=== PATIENT | female | born 1940 | race American Indian/Alaskan Native ===

== ENCOUNTER 2018-01-06 14:46 | Emergency (ER) | payer MEDICARE ==
[2018-01-06 15:16] VITALS: BP 141/62
[2018-01-06] MEDS ORDERED: NACL 0.9% 1000 ML 1,000 ML IV ONE (15:17)
== END 2018-01-06 15:12 | disposition left against medical advice (07) ==
LOC: ED 14:46
DX: T80.89XA Other complications following infusion, transfusion and therapeutic injection, initial encounter (principal); R53.1 Weakness; Z95.0 Presence of cardiac pacemaker; Z90.49 Acquired absence of other specified parts of digestive tract; Z88.0 Allergy status to penicillin; Z53.21 Procedure and treatment not carried out due to patient leaving prior to being seen by health care provider

== ENCOUNTER 2018-04-20 20:47 | Inpatient (IN) | payer MEDICARE ==
[2018-04-20] MEDS ORDERED: CARDIZEM IV ONE (22:48)
--- NOTE | 2018-04-20 22:55 | Emergency Department Report ---
HPI - General Time Seen by Provider: 04/20/18 22:02 - HPI HPI: Room 18 The patient is an 78-year-old female presenting with a chief complaint of altered mental status. The patient is a resident at a alf and family states the patient last known well time was 04/18/2018. The daughter states she did not check on the patient yesterday but today at 11:30 shows that the patient was not behaving like herself that she was not speaking and appears over her eyes rolled in the back of her head. Patient opens eyes and makes eye contact but will not answer questions to provide history. Location: Mental status Duration: [See above] Quality: Altered Severity: Moderate Modifying factors: [see above] Context: [see above] Mode of transportation: [not driving] ED Past Medical Hx - Past Medical History Hx Hypertension: Yes Hx Heart Attack/AMI: Yes Hx Congestive Heart Failure: Yes Hx Diabetes: Yes (diet) Hx of Cancer: Yes (multiple myeloma) Additional medical history: Heart problems; multiple myeloma - Surgical History Hx Coronary Stent: Yes Hx Appendectomy: Yes Additional Surgical History: Pacemaker, Hysterectomy, Bladder surgery; jaw surgery - Family History Family history: no significant - Social History Smoking Status: Former Smoker (none 20 years) Substance Use Type: None - Medications Home Medications: Home Medications Medication Instructions Recorded Confirmed Last Taken Type Aspirin [Aspirin BABY CHEW TAB] 81 mg PO QDAY 08/18/14 01/06/18 Unknown History DULoxetine [Cymbalta] 60 mg PO DAILY 08/18/14 01/06/18 Unknown History Gabapentin [Neurontin] 300 mg PO BID 08/18/14 01/06/18 Unknown History Topiramate [Topamax TAB] 25 mg PO HS 08/18/14 01/06/18 Unknown History amLODIPine [Norvasc] 5 mg PO DAILY 08/18/14 01/06/18 Unknown History ALPRAZolam [Xanax TAB] 0.25 mg PO DAILY PRN 01/06/18 01/06/18 Unknown History Acidophilus Lactobacillus 1 cap PO BID 01/06/18 01/06/18 Unknown History Atorvastatin Calcium 80 mg PO HS 01/06/18 01/06/18 Unknown History Carvedilol [Coreg] 3.125 mg PO DAILY 01/06/18 01/06/18 Unknown History Dextran 70/Hypromellose 1 drop OU BID 01/06/18 01/06/18 Unknown History [Artificial Tears] Docusate Sodium [Colace CAP] 100 mg PO DAILY 01/06/18 01/06/18 Unknown History Norvasc 5 mg PO DAILY 01/06/18 01/06/18 Unknown History Sennosides [Senna] 2 tab PO BID 01/06/18 01/06/18 Unknown History Ventolin Hfa 2 puff INHALATION Q4H PRN 01/06/18 01/06/18 Unknown History Xanax 0.25 mg PO HS 01/06/18 01/06/18 Unknown History HYDROcodone/APAP 5-325 [[place] 1 each PO Q4H PRN #10 tablet 01/18/18 Unknown Rx 5-325 mg TAB] ED Review of Systems ROS: Stated complaint: RESPIRATORY DIFFICULTY Other details as noted in HPI Comment: Unobtainable due to pts medical conditions Physical Exam - Physical Exam Physical Exam: GENERAL: The patient is well-developed well-nourished female lying on stretcher not appearing to be in acute distress. [] HEENT: Normocephalic. Atraumatic. Extraocular motions are intact. Patient has moist mucous membranes. NECK: Supple. Trachea midline CHEST/LUNGS: Clear to auscultation. There is no respiratory distress noted. HEART/CARDIOVASCULAR: Irregular but rapid. There is tachycardia. There is no gallop rub or murmur. ABDOMEN: Abdomen is soft, with tenderness to palpation in the right upper quadrant and left upper quadrant. Patient has normal bowel sounds. There is no abdominal distention. SKIN: There is no rash. There is no diaphoresis. NEURO: The patient is awake but does not answer questions. Patient will not follow commands for neurologic exam. MUSCULOSKELETAL: There is no evidence of acute injury. - Central Line Placement Right Femoral Consent Obtained: verbal consent Time Out Performed: No Patient Placed on Monitor/Pulse Ox: Yes MD Prep: mask, gown, gloves Central Line Prep: Chlorhexidine scrub Local Anesthesia Used: Lidocaine 1% Amount of Anesthesia Used (mls): 5 Ultrasound Used for Placement: No Central Line Lumen Inserted: triple Bloods Obtained for Lab: Yes Central Line Position: good blood return, all ports aspirated, flus, other ( line secured with adhesive) Dressing Applied: Tegaderm Patient Tolerated Procedure: no complications Complications: none ED Medical Decision Making - Lab Data Result diagrams: 04/21/18 00:05 04/21/18 00:05 Laboratory Tests 04/21/18 04/21/18 04/21/18 00:05 00:05 00:05 WBC 2.9 L RBC 2.51 L Hgb 7.6 L Hct 22.7 L MCV 91 MCH 30 MCHC 33 RDW 17.8 H Plt Count 47 L PT 19.3 H INR 1.57 H APTT 36.4 D-Dimer 3469.10 H Sodium 146 H Potassium 3.4 L Chloride 107.2 H Carbon Dioxide 18 L Anion Gap 24 BUN 33 H Creatinine 1.8 H Estimated GFR 33 BUN/Creatinine Ratio 18 Glucose 155 H Calcium 7.5 L Total Bilirubin 1.90 H AST 29 ALT 17 Alkaline Phosphatase 73 Total Creatine Kinase CK-MB (CK-2) CK-MB (CK-2) Rel Index Troponin T NT-Pro-B Natriuret Pep Total Protein 4.6 L Albumin 2.3 L Albumin/Globulin Ratio 1.0 Triglycerides Cholesterol LDL Cholesterol Direct HDL Cholesterol Cholesterol/HDL Ratio Lipase 04/21/18 00:05 WBC RBC Hgb Hct MCV MCH MCHC RDW Plt Count PT INR APTT D-Dimer Sodium Potassium Chloride Carbon Dioxide Anion Gap BUN Creatinine Estimated GFR BUN/Creatinine Ratio Glucose Calcium Total Bilirubin AST ALT Alkaline Phosphatase Total Creatine Kinase 301 H CK-MB (CK-2) 1.9 CK-MB (CK-2) Rel Index 0.6 Troponin T 0.180 H* NT-Pro-B Natriuret Pep 9064 H Total Protein Albumin Albumin/Globulin Ratio Triglycerides 181 H Cholesterol 93 LDL Cholesterol Direct 28 L HDL Cholesterol 35 L Cholesterol/HDL Ratio 2.65 Lipase 7 L - EKG Data -: EKG Interpreted by Me Rate: tachycardia - EKG Data When compared to previous EKG there are: previous EKG unavailable Interpretation: other (on monitor patient's rate appears irregular consistent with A. fib with RVR) - Radiology Data Radiology results: pending (VQ scan pending (awaiting tech)), report reviewed ( CT abdomen and pelvis, CT head), image reviewed (chest x-ray, CT abdomen and pelvis, CT head) interpreted by me: Chest x-ray- patient is slightly rotated. Bibasilar increased densities versus breast shadows. No pneumothorax [facility] [address] [place] [address] Cat Scan Report Signed Patient: LASHA VIEIRA MR#: [id number] : 1940 Acct:[id number] Age/Sex: 78 / F ADM Date: 04/20/18 Loc: ED Attending Dr: Ordering Physician: VINAY LOPEZ MD Date of Service: 04/21/18 Procedure(s): CT abdomen pelvis wo con Accession Number(s): [id number] cc: VINAY LOPEZ MD FINAL REPORT PROCEDURE: CT ABDOMEN PELVIS WO CON TECHNIQUE: Computerized axial tomography of the abdomen and pelvis was performed without intravenous contrast. This study is performed without intravascular contrast material and its sensitivity for abdominal and pelvic pathology, including neoplasms, inflammation, abscess, free fluid, thrombosis, arterial dissection and infarction, is reduced compared with a contrast enhanced study. HISTORY: RUQ, LUQ and epigastric tenderness COMPARISON: No prior studies are available for comparison. FINDINGS: Visualized lower thorax: There is atelectasis at the lung bases. There is a right lower lobe infiltrate. There are bilateral pleural effusions.. Liver: Normal size and attenuation. Spleen: Normal size and attenuation. Gallbladder and biliary system: There is cholelithiasis. There is no specific evidence of cholecystitis or biliary ductal dilatation.. Pancreas: Normal. Adrenals: Normal. Kidneys: There are no kidney stones or ureteral stones. There is no hydronephrosis. There is a 2 centimeter hypodense area in the left kidney which could be a cyst.. GI tract: There is mucosal thickening of the colon indicating colitis. This is nonspecific and could be infectious or inflammatory. There is no specific evidence of ischemic colitis. There is no obstruction or perforation. The stomach and small bowel are unremarkable. The appendix is not identified.. Lymph nodes and mesentery: Normal. Vasculature: There is calcified plaque in the abdominal aorta. There is no aneurysm.. Bladder: Normal. Reproductive organs: There has been hysterectomy. Peritoneum: There is no ascites or free air. There is no abscess or adenopathy.. Musculoskeletal structures: There are compression deformities of T12 and L1 which could be acute. MRI may be helpful. Other: There is generalized subcutaneous edema.. IMPRESSION: There is cholelithiasis. There is no specific evidence of cholecystitis or biliary ductal dilatation. There are no kidney stones or ureteral stones. There is no hydronephrosis. There is a 2 centimeter hypodense area in the left kidney which could be a cyst.. There is mucosal thickening of the colon indicating colitis. This is nonspecific and could be infectious or inflammatory. There is no specific evidence of ischemic colitis. There is no obstruction or perforation. There has been hysterectomy. There is no ascites or free air. There is no abscess or adenopathy.. There are compression deformities of T12 and L1 which could be acute. MRI may be helpful. There is atelectasis at the lung bases. There is a right lower lobe infiltrate. There are bilateral pleural effusions.. Transcribed By: CO Dictated By: MAIRA DAMON MD Electronically Authenticated By: MAIRA DAMON MD Signed Date/Time: 04/21/18155 DD/ 5 TD/TT: 04/21/18155 [facility] [address] [place] [address] Cat Scan Report Signed Patient: LASHA VIEIRA MR#: [id number] : 1940 Acct:[id number] Age/Sex: 78 / F ADM Date: 04/20/18 Loc: ED Attending Dr: Ordering Physician: VINAY LOPEZ MD Date of Service: 04/20/18 Procedure(s): CT head/brain wo con Accession Number(s): [id number] cc: VINAY LOPEZ MD FINAL REPORT PROCEDURE: CT HEAD/BRAIN WO CON TECHNIQUE: Computerized tomography of the head was performed without contrast material. HISTORY: altered mental status COMPARISON: No prior studies are available for comparison. FINDINGS: Skull and scalp: Normal. Paranasal sinuses: There is fluid in the sphenoid sinus.. Ventricles and subarachnoid spaces: There is mild central and cortical atrophy. There is no hydrocephalus or asymmetry.. Cerebrum: No evidence of hemorrhage, acute infarction or mass. There is mild chronic deep white matter ischemic gliosis. Cerebellum and brainstem: No evidence of hemorrhage, acute infarction or mass. Vasculature: Normal. Comments: None. IMPRESSION: The there are chronic involutional and ischemic changes. There is no hemorrhage or edema. There is sphenoid sinusitis. Transcribed By: CO Dictated By: MAIRA DAMON MD Electronically Authenticated By: MAIRA DAMON MD Signed Date/Time: 04/21/18158 DD/ 8 TD/TT: 04/21/18158 [facility] [address] [place] [address] XRay Report Signed Patient: LASHA VIEIRA MR#: [id number] : 1940 Acct:[id number] Age/Sex: 78 / F ADM Date: 04/20/18 Loc: ED Attending Dr: Ordering Physician: VINAY LOPEZ MD Date of Service: 04/21/18 Procedure(s): XR chest 1V ap Accession Number(s): [id number] cc: VINAY LOPEZ MD Fluoro Time In Minutes: FINAL REPORT PROCEDURE: XR CHEST 1V AP TECHNIQUE: Chest radiograph anteroposterior view. CPT 65200 HISTORY: tachycardia, elevated d-dimer COMPARISON: 01/18/2018 FINDINGS: Heart is enlarged. There are bilateral lower lobe infiltrates and small effusions. There is no pneumothorax. Bony and soft tissue structures are normal. IMPRESSION: Heart is enlarged. There are bilateral lower lobe infiltrates and small effusions. There is no pneumothorax. . Transcribed By: CO Dictated By: MAIRA DAMON MD Electronically Authenticated By: MAIRA DAMON MD Signed Date/Time: 04/21/18212 DD/ 2 TD/TT: 04/21/18212 - Differential Diagnosis sepsis, CVA, altered mental status, A. fib with RVR Critical Care Time: Yes Critical care time in (mins) excluding proc time.: 30 Critical care attestation.: If time is entered above; I have spent that time in minutes in the direct care of this critically ill patient, excluding procedure time. ED Disposition Clinical Impression: Altered mental status, Elevated troponin, Tachycardia, Pancytopenia, Renal insufficiency, Pneumonia Disposition: OP ADMIT IP TO THIS HOSP Is pt being admited?: Yes Does the pt Need Aspirin: No Condition: Serious Instructions: Bacterial Pneumonia (ED) Referrals: PRIMARY CARE, [Primary Care Provider] - 3-5 Days Time of Disposition: 02:16 (hospitalist paged (Dr Rose))
[2018-04-20] MEDS ORDERED: CARDIZEM 100 MG in D5W 80 ML IV SCH (23:45)
[2018-04-21 00:21] LABS: Hematocrit 22.7 % (30.3-42.9); Hemoglobin 7.6 gm/dl (10.1-14.3); Mean Corpuscular HGB Conc 33 % (30-34); Mean Corpuscular Hemoglobin 30 pg (28-32); Mean Corpuscular Volume 91 fl (79-97); Red Blood Count 2.51 M/mm3 (3.65-5.03); Red Cell Distribution Width 17.8 % (13.2-15.2)
[2018-04-21 00:29] LABS: Platelet Count 47 K/mm3 (140-440)
[2018-04-21 00:31] LABS: INR 1.57 (0.87-1.13)
[2018-04-21 00:32] LABS: Partial Thromboplastin Time 36.4 Sec. (24.2-36.6)
[2018-04-21 00:52] LABS: Creatine Kinase MB 1.9 ng/mL (0.0-4.0)
[2018-04-21 00:53] LABS: Albumin 2.3 g/dL (3.9-5); Calcium 7.5 mg/dL (8.4-10.2)
[2018-04-21] MEDS ORDERED: CARDIZEM IV ONE (01:21)
--- NOTE | 2018-04-21 01:57 | Cat Scan Report ---
FINAL REPORT PROCEDURE: CT ABDOMEN PELVIS WO CON TECHNIQUE: Computerized axial tomography of the abdomen and pelvis was performed without intravenous contrast. This study is performed without intravascular contrast material and its sensitivity for abdominal and pelvic pathology, including neoplasms, inflammation, abscess, free fluid, thrombosis, arterial dissection and infarction, is reduced compared with a contrast enhanced study. HISTORY: RUQ, LUQ and epigastric tenderness COMPARISON: No prior studies are available for comparison. FINDINGS: Visualized lower thorax: There is atelectasis at the lung bases. There is a right lower lobe infiltrate. There are bilateral pleural effusions.. Liver: Normal size and attenuation. Spleen: Normal size and attenuation. Gallbladder and biliary system: There is cholelithiasis. There is no specific evidence of cholecystitis or biliary ductal dilatation.. Pancreas: Normal. Adrenals: Normal. Kidneys: There are no kidney stones or ureteral stones. There is no hydronephrosis. There is a 2 centimeter hypodense area in the left kidney which could be a cyst.. GI tract: There is mucosal thickening of the colon indicating colitis. This is nonspecific and could be infectious or inflammatory. There is no specific evidence of ischemic colitis. There is no obstruction or perforation. The stomach and small bowel are unremarkable. The appendix is not identified.. Lymph nodes and mesentery: Normal. Vasculature: There is calcified plaque in the abdominal aorta. There is no aneurysm.. Bladder: Normal. Reproductive organs: There has been hysterectomy. Peritoneum: There is no ascites or free air. There is no abscess or adenopathy.. Musculoskeletal structures: There are compression deformities of T12 and L1 which could be acute. MRI may be helpful. Other: There is generalized subcutaneous edema.. IMPRESSION: There is cholelithiasis. There is no specific evidence of cholecystitis or biliary ductal dilatation. There are no kidney stones or ureteral stones. There is no hydronephrosis. There is a 2 centimeter hypodense area in the left kidney which could be a cyst.. There is mucosal thickening of the colon indicating colitis. This is nonspecific and could be infectious or inflammatory. There is no specific evidence of ischemic colitis. There is no obstruction or perforation. There has been hysterectomy. There is no ascites or free air. There is no abscess or adenopathy.. There are compression deformities of T12 and L1 which could be acute. MRI may be helpful. There is atelectasis at the lung bases. There is a right lower lobe infiltrate. There are bilateral pleural effusions..
--- NOTE | 2018-04-21 02:01 | Cat Scan Report ---
FINAL REPORT PROCEDURE: CT HEAD/BRAIN WO CON TECHNIQUE: Computerized tomography of the head was performed without contrast material. HISTORY: altered mental status COMPARISON: No prior studies are available for comparison. FINDINGS: Skull and scalp: Normal. Paranasal sinuses: There is fluid in the sphenoid sinus.. Ventricles and subarachnoid spaces: There is mild central and cortical atrophy. There is no hydrocephalus or asymmetry.. Cerebrum: No evidence of hemorrhage, acute infarction or mass. There is mild chronic deep white matter ischemic gliosis. Cerebellum and brainstem: No evidence of hemorrhage, acute infarction or mass. Vasculature: Normal. Comments: None. IMPRESSION: The there are chronic involutional and ischemic changes. There is no hemorrhage or edema. There is sphenoid sinusitis.
[2018-04-21 02:08] LABS: Chol/HDL Ratio 2.65 %
[2018-04-21] MEDS ORDERED: PLAVIX PO ONE (02:08)
[2018-04-21] MEDS ORDERED: LEVAQUIN 500MG/100ML 500 MG/100 ML BAG IV ONE ×2 (02:15→03:17)
--- NOTE | 2018-04-21 02:15 | XRay Report ---
FINAL REPORT PROCEDURE: XR CHEST 1V AP TECHNIQUE: Chest radiograph anteroposterior view. CPT 54939 HISTORY: tachycardia, elevated d-dimer COMPARISON: 01/18/2018 FINDINGS: Heart is enlarged. There are bilateral lower lobe infiltrates and small effusions. There is no pneumothorax. Bony and soft tissue structures are normal. IMPRESSION: Heart is enlarged. There are bilateral lower lobe infiltrates and small effusions. There is no pneumothorax. .
[2018-04-21] MEDS ORDERED: ZOFRAN IV PRN (03:01)
[2018-04-21] MEDS ORDERED: TYLENOL PO PRN (03:02)
[2018-04-21] MEDS: MORPHINE IV PRN (03:22)
--- NOTE | 2018-04-21 05:17 | History and Physical Report ---
CHIEF COMPLAINT: Change in mental status. HISTORY OF PRESENT ILLNESS: The patient is an 78-year-old female brought from the care home because of change in mental status. The patient's daughter states she went there and noticed that the mother was not talking the way she used to talk and was confused, but there was no history of fever. There was no history of chest pain, nausea or vomiting. Also, daughter states she noticed that her mother's eyes were rolled back and patient was brought over for evaluation in the Emergency Room. PAST MEDICAL HISTORY: Pertinent for hypertension, coronary artery disease, status post myocardial infarction, congestive heart failure, diabetes mellitus, multiple myeloma. PAST SURGICAL HISTORY: Pertinent for appendectomy, coronary artery stent placement, pacemaker placement, hysterectomy, bladder surgery and jaw surgery. FAMILY HISTORY: Family history is noncontributory. SOCIAL HISTORY: The patient stays at a care home, does not smoke currently, used to smoke about 20 years ago. Does not drink alcohol and does not use illicit drugs. MEDICATIONS: The patient is on the following medications: Aspirin 81 mg daily, Cymbalta 60 mg daily, gabapentin 300 mg twice daily, Topamax 25 mg at bedtime, Norvasc 5 mg by mouth daily, Xanax 0.25 mg by mouth daily as needed for anxiety, acidophilus lactobacillus 1 caps by mouth twice daily, atorvastatin calcium 80 mg at bedtime, carvedilol 3.125 mg by mouth daily, artificial tears one drop to the right eye twice daily, Colace or docusate sodium 100 mg by mouth daily, sennoside or senna 2 tablets by mouth twice daily, Ventolin inhaler 2 puffs via inhalation every 4 hours as needed for shortness of breath, [place] 5/325 mg 1 by mouth every 4 hours as needed for pain. ALLERGIES: THE PATIENT IS ALLERGIC TO PENICILLIN. REVIEW OF SYSTEMS: CONSTITUTIONAL: There is no fever, no chills, no diaphoresis. HEENT: There is no headache or sore throat. CARDIOVASCULAR SYSTEM: There is no chest pain or orthopnea. RESPIRATORY SYSTEM: There is no shortness of breath or cough. GASTROINTESTINAL SYSTEM: There is no nausea, no vomiting. No abdominal pain, diarrhea or constipation. NEUROLOGICAL SYSTEM: Altered mental status noted. No dizziness. MUSCULOSKELETAL SYSTEM: There is no joint pain or swelling. DERMATOLOGICAL SYSTEM: There is report of skin breakdown in the leg and sacral area. GENITOURINARY SYSTEM: There is no dysuria, hematuria or flank pain. Rest of system review is normal. PHYSICAL EXAMINATION: GENERAL: At the time of exam, the patient was found to be alert, oriented to person only and not in acute distress. VITAL SIGNS: Show normal temperature with pulse of 121, respiration of 18, blood pressure 119/53. HEENT: Shows pupils to be equal, round, reactive to light and accommodating. Extraocular muscles are intact. NECK: Neck is supple with no JVD or carotid bruit. CARDIOVASCULAR SYSTEM: Showed normal first and second heart sounds with no gallops or murmurs. RESPIRATORY SYSTEM: Showed bilateral scattered crackles in both lung franco. GASTROINTESTINAL SYSTEM: Showed abdomen to be full, soft, nontender with no organomegaly or rigidity. NEUROLOGIC: Showed the patient who is confused with no focal deficit. MUSCULOSKELETAL SYSTEM: Showed no joint swelling or tenderness. DERMATOLOGICAL SYSTEM: Showed skin excoriation in the sacral area and in the left leg. GENITOURINARY SYSTEM: Showed no costovertebral angle tenderness. PERTINENT LABORATORY DATA AND IMAGING STUDIES: The patient had CT of the abdomen and pelvis with contrast done that shows mucosal thickening of the colon indicating colitis and also there is finding of compression deformities of T12 and L1 which they say could be acute. There is atelectasis at the lung bases, right lower lobe infiltrate, and bilateral pleural effusion. There is also finding of cholelithiasis with no specific evidence of cholecystitis or bilateral ductal dilatation. The patient also had CT of the head without contrast that shows chronic involutional and ischemic changes with no hemorrhage or edema found. There is sphenoid sinusitis also noted. The patient had chest x-ray done, which shows that there are bilateral lower lobe infiltrates and small effusion. There is no finding of any pneumothorax according to the radiologist. Lab results; the patient has CBC done with low white count of 2.9, low hemoglobin of 7.6 and low hematocrit of 22.7 with low platelet of 47,000 suggestive of pancytopenia, most likely due to multiple myeloma. The patient has coagulation studies done that shows elevated PT of 19.3 and elevated INR of 1.5 with high D-dimer of 3469 that warranted the ordering of V/Q scan, which is yet to be done. The patient's chemistry shows a slightly elevated sodium level of 146 with low potassium level of 3.4, elevated BUN of 33 and elevated creatinine of 1.8 with elevated glucose level of 155, low calcium level of 7.5 and high total bilirubin of 1.9. Liver transaminases came back normal. The patient's cardiac enzyme shows slightly elevated total CPK of 301 with elevated troponin level of 0.180. The patient's brain natriuretic peptide level is high with a value of 9064 and albumin level is low with a value of 2.3. Rest of chemistry is unremarkable. DIAGNOSES: 1. Altered mental status. 2. Colitis. 3. Sacral decubitus ulcer. 4. Right lower lobe pneumonia. 5. Elevated troponin level. 6. Acute kidney injury. PLAN: 1. The patient will be admitted to telemetry. 2. The patient will have cardiac enzymes involving troponin, total CK, and CK-MB checked q. 6 hours x 2 more level. 3. The patient will have Nephrology consult with Dr. Adams for evaluation of renal insufficiency or acute kidney injury. 4. The patient will have wound care nurse consult for management of sacral decubitus ulcer. 5. The patient will be on p.r.n. medications like Tylenol 650 mg by mouth every 4 hours for fever and headache and Zofran 4 mg IV every 8 hours for nausea and vomiting. 6. The patient will be on IV Levaquin 750 mg daily. 7. The patient will have a V/Q scan done as ordered by the Emergency Room physician in the morning. 8. The patient will be on heparin 5000 units subQ q. 12 hours for DVT prophylaxis. 9. The patient's home medications will be started as shown in the medication reconciliation section. JOB# [id number] OCN/NTS
[2018-04-21 05:46] LABS: Band Neutrophils # (Manual) 0.9 K/mm3; Eosinophils % (Manual) 0 % (0.0-4.3); Myelocytes # (Manual) 0.1 K/mm3; Promyelocytes # (Manual) 0.1 K/mm3; Total Cells Counted 100
[2018-04-21 05:47] LABS: Anisocytosis 1+; Platelet Estimate Appears Decreased; Tear Drop Cells 1+
--- NOTE | 2018-04-21 07:14 | Nuclear Medicine Report ---
FINAL REPORT PROCEDURE: NM LUNG SCAN PERF/VENT TECHNIQUE: 5.0 mCi Tc-99m MAA was injected IV for pulmonary perfusion imaging in multiple projections. 15 MCi XE-133 was inhaled for pulmonary ventilation imaging in multiple projections. Injection site: RIGHT antecubital fossa. CPT 03886 REGULATORY GUIDELINES: The patient was released based upon guidelines established in [place] State Regulations for Protection Against Radiation, Chapter 3512-05-00-35, Release of Individuals Containing Radioactive Drugs or Implants. HISTORY: tachycardia, elevated d-dimer COMPARISON: No prior studies are available for comparison. FINDINGS: Perfusion: No defects . Ventilation: No defects . IMPRESSION: Normal Examination
[2018-04-21 08:20] LABS: Creatine Kinase MB 2.4 ng/mL (0.0-4.0)
[2018-04-21] MEDS ORDERED: LEVAQUIN 750MG/150ML 0 MG/0 ML BAG IV ONE (10:44)
[2018-04-21] MEDS: HEPARIN SUB-Q SCH ×2 (11:00→22:40)
[2018-04-21 12:59] LABS: Creatine Kinase MB 3.1 ng/mL (0.0-4.0)
[2018-04-21 14:18] LABS: Bacteria,Urine 4+ /HPF (Negative); Bilirubin,Urine NEG (Negative); Blood,Urine MOD (Negative); Color,Urine Amber (Yellow); Mucus,Urine FEW /HPF
[2018-04-21] MEDS ORDERED: VENTOLIN INHALATION PRN (14:47)
[2018-04-21] MEDS ORDERED: XANAX PO PRN (14:47)
--- NOTE | 2018-04-21 14:57 | Event Note ---
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 When I evaluated the patient, patient is noncommunicative, sick looking Tachycardic with multiple PVCs, on Cardizem drip No family available, limited history from ER and admitting physician's note Patient's vital signs reviewed. 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 Psych; noncommunicative Skin; age-related changes Assessment and plan: --Metabolic encephalopathy; multifactorial, dementia Underlying sepsis, hypotension, pneumonia Continue supportive care, treat underlying disease process --Worsening shortness of breath; O2 titrate O2 sats to more than 90%, given neb --Right lower lobe pneumonia; present on admission IV Levaquin, cultures supportive care Possible aspiration pneumonia, speech and swallow eval --Acute kidney injury; probably secondary to ATN Gentle hydration, nephrology following --Severe hypokalemia; replenishment protocol --Hypomagnesemia; replenishment protocol --Elevated D dimers, negative V/Q scan --Lower extremity, left upper extremity swelling; venous Doppler To rule out DVT in the setting of elevated D dimers. --Acute colitis; IV Levaquin, renal dose Supportive care, consult GI as needed --Anemia; closely monitor H&H, transfuse as needed Stool for occult blood[hemoglobin in 01/13 was 11.4] --Dementia; supportive care --History of hypertension; patient is currently hypotensive --Sinus tachycardia/PVCs; patient is on Cardizem drip Closely monitor --Positive cardiac enzymes; probably nonspecific Multiple risk factors, cardiology evaluation --Severe malnutrition; hypoalbuminemia; supportive care nutrition consult --DVT prophylaxis; SCDs --Full CODE STATUS Clinical care time 35 minutes
[2018-04-21] MEDS ORDERED: PROVENTIL IH PRN (15:15)
--- NOTE | 2018-04-21 15:38 | Consultation ---
History of Present Illness - Reason for Consult Consult date: 04/21/18 acute renal failure, chronic renal failure Requesting physician: TOMI TERRAZAS Medications and Allergies Allergies Allergy/AdvReac Type Severity Reaction Status Date / Time Penicillins Allergy Rash Verified 08/18/14 12:13 Home Medications Medication Instructions Recorded Confirmed Last Taken Type Aspirin [Aspirin BABY CHEW TAB] 81 mg PO QDAY 08/18/14 04/21/18 Unknown History DULoxetine [Cymbalta] 60 mg PO DAILY 08/18/14 04/21/18 Unknown History Gabapentin [Neurontin] 300 mg PO BID 08/18/14 04/21/18 Unknown History Topiramate [Topamax TAB] 25 mg PO HS 08/18/14 04/21/18 Unknown History amLODIPine [Norvasc] 5 mg PO DAILY 08/18/14 04/21/18 Unknown History ALPRAZolam [Xanax TAB] 0.25 mg PO DAILY PRN 01/06/18 04/21/18 Unknown History Acidophilus Lactobacillus 1 cap PO BID 01/06/18 04/21/18 Unknown History Atorvastatin Calcium 80 mg PO HS 01/06/18 04/21/18 Unknown History Carvedilol [Coreg] 3.125 mg PO DAILY 01/06/18 04/21/18 Unknown History Dextran 70/Hypromellose 1 drop OU BID 01/06/18 04/21/18 Unknown History [Artificial Tears] Docusate Sodium [Colace CAP] 100 mg PO DAILY 01/06/18 04/21/18 Unknown History Norvasc 5 mg PO DAILY 01/06/18 04/21/18 Unknown History Sennosides [Senna] 2 tab PO BID 01/06/18 04/21/18 Unknown History Ventolin Hfa 2 puff INHALATION Q4H PRN 01/06/18 04/21/18 Unknown History Xanax 0.25 mg PO HS 01/06/18 04/21/18 Unknown History HYDROcodone/APAP 5-325 [[place] 1 each PO Q4H PRN #10 tablet 01/18/18 04/21/18 Unknown Rx 5-325 mg TAB] Active Meds: Active Medications Acetaminophen (Tylenol) 650 mg PO Q4H PRN PRN Reason: Fever >101 Albuterol (Proventil) 2.5 mg IH Q4HRT PRN PRN Reason: Shortness Of Breath Alprazolam (Xanax) 0.25 mg PO DAILY PRN PRN Reason: Anxiety Aspirin (Baby Aspirin) 81 mg PO QDAY [facility] Atorvastatin Calcium (Lipitor) 80 mg PO QHS [facility] Carvedilol (Coreg) 3.125 mg PO DAILY [facility] Docusate Sodium (Colace) 100 mg PO DAILY [facility] Duloxetine HCl (Cymbalta) 60 mg PO DAILY [facility] Heparin Sodium (Porcine) (Heparin) 5,000 unit SUB-Q Q12HR YA[facility]IRA Last Admin: 04/21/18 11:00 Dose: 5,000 unit Diltiazem HCl 100 mg/ Dextrose 100 mls @ 5 mls/hr IV DIRECT YAHAIRA; Protocol Last Admin: 04/20/18 23:55 Dose: 5 mg/hr, 5 mls/hr Levofloxacin/Dextrose (Levaquin 250mg/50ml) 250 mg in 50 mls @ 50 mls/hr IV Q24HR YA[facility]IRA; Protocol Magnesium Sulfate (Magnesium Sulfate 2gm/50ml) 2 gm in 50 mls @ 25 mls/hr IV ONCE ONE Stop: 04/21/18 18:29 Morphine Sulfate (Morphine) 2 mg IV Q4H PRN PRN Reason: Pain, Moderate (4-6) Last Admin: 04/21/18 03:22 Dose: 2 mg Ondansetron HCl (Zofran) 4 mg IV Q8H PRN PRN Reason: Nausea And Vomiting Topiramate (Topamax) 25 mg PO HS [facility] Exam - Vital Signs Vital signs: Vital Signs Pulse Resp Pulse Ox 165 H 22 98 04/20/18 23:36 04/20/18 23:36 04/20/18 23:36 Results - Lab Results 04/21/18 00:05 04/21/18 00:05 Most recent lab results Calcium 7.5 mg/dL (8.4-10.2) L 04/21/18 00:05 Assessment and Plan --Worsening shortness of breath; O2 titrate O2 sats to more than 90%, given neb --Right lower lobe pneumonia; present on admission IV Levaquin, cultures supportive care Possible aspiration pneumonia, speech and swallow eval --Acute kidney injury; probably secondary to ATN Gentle hydration, nephrology following --Severe hypokalemia; replenishment protocol --Hypomagnesemia; replenishment protocol --Elevated D dimers, negative V/Q scan --Lower extremity, left upper extremity swelling; venous Doppler To rule out DVT in the setting of elevated D dimers. --Acute colitis; IV Levaquin, renal dose Supportive care, consult GI as needed --Anemia; closely monitor H&H, transfuse as needed Stool for occult blood[hemoglobin in 01/13 was 11.4] --Dementia; supportive care --History of hypertension; patient is currently hypotensive --Sinus tachycardia/PVCs; patient is on Cardizem drip Closely monitor --Positive cardiac enzymes; probably nonspecific Multiple risk factors, cardiology evaluation --Severe malnutrition; hypoalbuminemia; supportive care nutrition consult
--- NOTE | 2018-04-21 15:42 | Consultation ---
History of Present Illness - Reason for Consult Consult date: 04/21/18 acute renal failure, chronic renal failure Requesting physician: TOMI TERRAZAS - History of Present Illness The patient is an 78-year-old female presenting with a chief complaint of altered mental status. The patient is a resident at a group home and family states the patient last known well time was 04/18/2018. The daughter states she did not check on the patient yesterday but today at 11:30 shows that the patient was not behaving like herself that she was not speaking and appears over her eyes rolled in the back of her head. Patient opens eyes and makes eye contact but will not answer questions to provide history. - Past Medical History Hx Hypertension: Yes Hx Heart Attack/AMI: Yes Hx Congestive Heart Failure: Yes Hx Diabetes: Yes (diet) Hx of Cancer: Yes (multiple myeloma) Additional medical history: Heart problems; multiple myeloma - Surgical History Hx Coronary Stent: Yes Hx Appendectomy: Yes Additional Surgical History: Pacemaker, Hysterectomy, Bladder surgery; jaw surgery - Family History Family history: no significant - Social History Smoking Status: Former Smoker (none 20 years) Substance Use Type: None Medications and Allergies Allergies Allergy/AdvReac Type Severity Reaction Status Date / Time Penicillins Allergy Rash Verified 08/18/14 12:13 Home Medications Medication Instructions Recorded Confirmed Last Taken Type Aspirin [Aspirin BABY CHEW TAB] 81 mg PO QDAY 08/18/14 04/21/18 Unknown History DULoxetine [Cymbalta] 60 mg PO DAILY 08/18/14 04/21/18 Unknown History Gabapentin [Neurontin] 300 mg PO BID 08/18/14 04/21/18 Unknown History Topiramate [Topamax TAB] 25 mg PO HS 08/18/14 04/21/18 Unknown History amLODIPine [Norvasc] 5 mg PO DAILY 08/18/14 04/21/18 Unknown History ALPRAZolam [Xanax TAB] 0.25 mg PO DAILY PRN 01/06/18 04/21/18 Unknown History Acidophilus Lactobacillus 1 cap PO BID 01/06/18 04/21/18 Unknown History Atorvastatin Calcium 80 mg PO HS 01/06/18 04/21/18 Unknown History Carvedilol [Coreg] 3.125 mg PO DAILY 01/06/18 04/21/18 Unknown History Dextran 70/Hypromellose 1 drop OU BID 01/06/18 04/21/18 Unknown History [Artificial Tears] Docusate Sodium [Colace CAP] 100 mg PO DAILY 01/06/18 04/21/18 Unknown History Norvasc 5 mg PO DAILY 01/06/18 04/21/18 Unknown History Sennosides [Senna] 2 tab PO BID 01/06/18 04/21/18 Unknown History Ventolin Hfa 2 puff INHALATION Q4H PRN 01/06/18 04/21/18 Unknown History Xanax 0.25 mg PO HS 01/06/18 04/21/18 Unknown History HYDROcodone/APAP 5-325 [[place] 1 each PO Q4H PRN #10 tablet 01/18/18 04/21/18 Unknown Rx 5-325 mg TAB] Active Meds: Active Medications Acetaminophen (Tylenol) 650 mg PO Q4H PRN PRN Reason: Fever >101 Albuterol (Proventil) 2.5 mg IH Q4HRT PRN PRN Reason: Shortness Of Breath Alprazolam (Xanax) 0.25 mg PO DAILY PRN PRN Reason: Anxiety Aspirin (Baby Aspirin) 81 mg PO QDAY [facility] Atorvastatin Calcium (Lipitor) 80 mg PO QHS [facility] Carvedilol (Coreg) 3.125 mg PO DAILY Y[facility] Docusate Sodium (Colace) 100 mg PO DAILY [facility] Duloxetine HCl (Cymbalta) 60 mg PO DAILY [facility] Heparin Sodium (Porcine) (Heparin) 5,000 unit SUB-Q Q12HR YA[facility]IRA Last Admin: 04/21/18 11:00 Dose: 5,000 unit Diltiazem HCl 100 mg/ Dextrose 100 mls @ 5 mls/hr IV DIRECT YAHAIRA; Protocol Last Admin: 04/20/18 23:55 Dose: 5 mg/hr, 5 mls/hr Levofloxacin/Dextrose (Levaquin 250mg/50ml) 250 mg in 50 mls @ 50 mls/hr IV Q24HR YAHAIRA; Protocol Magnesium Sulfate (Magnesium Sulfate 2gm/50ml) 2 gm in 50 mls @ 25 mls/hr IV ONCE ONE Stop: 04/21/18 18:29 Morphine Sulfate (Morphine) 2 mg IV Q4H PRN PRN Reason: Pain, Moderate (4-6) Last Admin: 04/21/18 03:22 Dose: 2 mg Ondansetron HCl (Zofran) 4 mg IV Q8H PRN PRN Reason: Nausea And Vomiting Topiramate (Topamax) 25 mg PO HS [facility] Review of Systems ROS unobtainable: due to mental status Exam - Vital Signs Vital signs: Vital Signs Pulse Resp Pulse Ox 165 H 22 98 04/20/18 23:36 04/20/18 23:36 04/20/18 23:36 - Physical Exam Narrative exam: GENERAL: The patient is well-developed well-nourished female lying on stretcher not appearing to be in acute distress. [] HEENT: Normocephalic. Atraumatic. Extraocular motions are intact. Patient has moist mucous membranes. NECK: Supple. Trachea midline CHEST/LUNGS: Clear to auscultation. There is no respiratory distress noted. HEART/CARDIOVASCULAR: Irregular but rapid. There is tachycardia. There is no gallop rub or murmur. ABDOMEN: Abdomen is soft, with tenderness to palpation in the right upper quadrant and left upper quadrant. Patient has normal bowel sounds. There is no abdominal distention. SKIN: There is no rash. There is no diaphoresis. NEURO: The patient is awake but does not answer questions. Patient will not follow commands for neurologic exam. MUSCULOSKELETAL: There is no evidence of acute injury. 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
--- NOTE | 2018-04-21 15:44 | Consultation ---
History of Present Illness Consult date: 04/21/18 Requesting physician: TOMI TERRAZAS Consult reason: congestive heart failure, elevated troponin, tachycardia History of present illness: The patient is an 78-year-old female longterm resident who presented for evaluation of altered mental status. Pt is confused and lethargic with no family at bedside on evaluation and thus HPI is obtained per the chart. The patient's family states the patient's last known well time was 04/18/2018. The daughter states she did not check on the patient yesterday but today at 11:30 she noted that the patient was not behaving like herself that she was not speaking and appear to have her eyes rolled in the back of her head. Patient opens eyes and makes eye contact but will not answer questions to provide history. Following arrival, pt was noted to be in apparent SVT and was initiated on cardizem gtt. On evaluation, she is in NSR with frequent PACs. Past History Past Medical History: other (ELVA) Past Surgical History: Other (ELVA) Social history: other (ELVA) Medications and Allergies Allergies Allergy/AdvReac Type Severity Reaction Status Date / Time Penicillins Allergy Rash Verified 08/18/14 12:13 Home Medications Medication Instructions Recorded Confirmed Last Taken Type Aspirin [Aspirin BABY CHEW TAB] 81 mg PO QDAY 08/18/14 04/21/18 Unknown History DULoxetine [Cymbalta] 60 mg PO DAILY 08/18/14 04/21/18 Unknown History Gabapentin [Neurontin] 300 mg PO BID 08/18/14 04/21/18 Unknown History Topiramate [Topamax TAB] 25 mg PO HS 08/18/14 04/21/18 Unknown History amLODIPine [Norvasc] 5 mg PO DAILY 08/18/14 04/21/18 Unknown History ALPRAZolam [Xanax TAB] 0.25 mg PO DAILY PRN 01/06/18 04/21/18 Unknown History Acidophilus Lactobacillus 1 cap PO BID 01/06/18 04/21/18 Unknown History Atorvastatin Calcium 80 mg PO HS 01/06/18 04/21/18 Unknown History Carvedilol [Coreg] 3.125 mg PO DAILY 01/06/18 04/21/18 Unknown History Dextran 70/Hypromellose 1 drop OU BID 01/06/18 04/21/18 Unknown History [Artificial Tears] Docusate Sodium [Colace CAP] 100 mg PO DAILY 01/06/18 04/21/18 Unknown History Norvasc 5 mg PO DAILY 01/06/18 04/21/18 Unknown History Sennosides [Senna] 2 tab PO BID 01/06/18 04/21/18 Unknown History Ventolin Hfa 2 puff INHALATION Q4H PRN 01/06/18 04/21/18 Unknown History Xanax 0.25 mg PO HS 01/06/18 04/21/18 Unknown History HYDROcodone/APAP 5-325 [[place] 1 each PO Q4H PRN #10 tablet 01/18/18 04/21/18 Unknown Rx 5-325 mg TAB] Active Meds: Active Medications Acetaminophen (Tylenol) 650 mg PO Q4H PRN PRN Reason: Fever >101 Albuterol (Proventil) 2.5 mg IH Q4HRT PRN PRN Reason: Shortness Of Breath Alprazolam (Xanax) 0.25 mg PO DAILY PRN PRN Reason: Anxiety Aspirin (Baby Aspirin) 81 mg PO QDAY [facility] Atorvastatin Calcium (Lipitor) 80 mg PO QHS [facility] Carvedilol (Coreg) 3.125 mg PO DAILY [facility] Docusate Sodium (Colace) 100 mg PO DAILY [facility] Duloxetine HCl (Cymbalta) 60 mg PO DAILY [facility] Heparin Sodium (Porcine) (Heparin) 5,000 unit SUB-Q Q12HR YAHAIRA Last Admin: 04/21/18 11:00 Dose: 5,000 unit Diltiazem HCl 100 mg/ Dextrose 100 mls @ 5 mls/hr IV DIRECT YAHAIRA; Protocol Last Admin: 04/20/18 23:55 Dose: 5 mg/hr, 5 mls/hr Levofloxacin/Dextrose (Levaquin 250mg/50ml) 250 mg in 50 mls @ 50 mls/hr IV Q24HR [facility]AHAIRA; Protocol Magnesium Sulfate (Magnesium Sulfate 2gm/50ml) 2 gm in 50 mls @ 25 mls/hr IV ONCE ONE Stop: 04/21/18 18:29 Morphine Sulfate (Morphine) 2 mg IV Q4H PRN PRN Reason: Pain, Moderate (4-6) Last Admin: 04/21/18 03:22 Dose: 2 mg Ondansetron HCl (Zofran) 4 mg IV Q8H PRN PRN Reason: Nausea And Vomiting Topiramate (Topamax) 25 mg PO HS [facility] Review of Systems ROS unobtainable: due to mental status Physical Examination Vital Signs Pulse Resp Pulse Ox 165 H 22 98 04/20/18 23:36 04/20/18 23:36 04/20/18 23:36 General appearance: other (confused, lethargic, no apparent distress) HEENT: Positive: PERRL Neck: Positive: neck supple, trachea midline Cardiac: Positive: Regular Rhythm, S1/S2 Lungs: Positive: Decreased Breath Sounds (anterior) Neuro: Positive: Other (lethargic, confused) Abdomen: Negative: Tender Skin: Negative: Rash Musculoskeletal: Fluid Collection (generalized ) Extremities: Present: +2 Edema (BLE) Results 04/21/18 00:05 04/21/18 14:55 Cardiac Enzymes 04/21/18 04/21/18 04/21/18 Range/Units 00:05 00:05 07:42 AST 29 (5-40) units/L CK-MB (CK-2) 1.9 2.4 (0.0-4.0) ng/mL 04/21/18 Range/Units 12:08 AST (5-40) units/L CK-MB (CK-2) 3.1 (0.0-4.0) ng/mL Coagulation 04/21/18 Range/Units 00:05 PT 19.3 H (12.2-14.9) Sec. INR 1.57 H (0.87-1.13) APTT 36.4 (24.2-36.6) Sec. Lipids 04/21/18 Range/Units 00:05 Triglycerides 181 H (2-149) mg/dL Cholesterol 93 (50-199) mg/dL HDL Cholesterol 35 L (40-59) mg/dL Cholesterol/HDL Ratio 2.65 % CBC 04/21/18 Range/Units 00:05 WBC 2.9 L (4.5-11.0) K/mm3 RBC 2.51 L (3.65-5.03) M/mm3 Hgb 7.6 L (10.1-14.3) gm/dl Hct 22.7 L (30.3-42.9) % Plt Count 47 L (140-440) K/mm3 Comprehensive Metabolic Panel 04/21/18 Range/Units 00:05 Sodium 146 H (137-145) mmol/L Potassium 3.4 L (3.6-5.0) mmol/L Chloride 107.2 H (98-107) mmol/L Carbon Dioxide 18 L (22-30) mmol/L BUN 33 H (7-17) mg/dL Creatinine 1.8 H (0.7-1.2) mg/dL Glucose 155 H (65-100) mg/dL Calcium 7.5 L (8.4-10.2) mg/dL AST 29 (5-40) units/L ALT 17 (7-56) units/L Alkaline Phosphatase 73 (35-129) units/L Total Protein 4.6 L (6.3-8.2) g/dL Albumin 2.3 L (3.9-5) g/dL - Imaging and Cardiology Echo: pending EKG: report reviewed, image reviewed EKG interpretations - Telemetry EKG Rhythm: Sinus Tachycardia - EKG Sinus rhythms and dysrhythmias: sinus tachycardia Assessment and Plan Assessment: Acute heart failure SVT --> SR NSTEMI type II ? UTI Altered mental status Anemia Thrombocytopenia Acute renal failure Elevated DDimer - V/Q scan normal Plan: Obtain echo. Optimize HR. The patient has been seen in conjunction with Dr. Roque who agrees with the assessment and plan of care.
[2018-04-21] MEDS ORDERED: NACL 0.45% 1000 ML 1,000 ML with KCL 20 MEQ IV SCH (16:00)
[2018-04-21 16:06] LABS: Calcium 7.2 mg/dL (8.4-10.2)
[2018-04-21] MEDS ORDERED: MAGNESIUM SULFATE 2GM/50ML 2 GM/50 ML BAG IV ONE (16:30)
[2018-04-21] MEDS: LOPRESSOR PO SCH (17:35)
[2018-04-21] MEDS ORDERED: NS 0.45/KCL 20MEQ 20 MEQ/1,000 ML BAG IV SCH (18:00)
[2018-04-21] MEDS ORDERED: NON-FORMULARY (Atorvastatin Calcium [Atorvastatin Calcium] 80 MG) PO SCH (22:00)
[2018-04-21] MEDS ORDERED: TOPAMAX PO SCH (22:00)
[2018-04-22] MEDS: LOPRESSOR PO SCH ×4 (00:30→18:55)
[2018-04-22] MEDS: MORPHINE IV PRN (01:32)
[2018-04-22 06:54] LABS: Calcium 7.1 mg/dL (8.4-10.2)
[2018-04-22] MEDS ORDERED: CYMBALTA PO SCH (10:00)
[2018-04-22] MEDS ORDERED: COLACE PO SCH (10:00)
[2018-04-22] MEDS ORDERED: LEVAQUIN 250MG/50ML 250 MG/50 ML BAG IV SCH (10:00)
[2018-04-22] MEDS ORDERED: BABY ASPIRIN PO SCH (10:00)
[2018-04-22] MEDS ORDERED: LEVAQUIN 750MG/150ML 750 MG/150 ML BAG IV SCH (10:00)
[2018-04-22] MEDS ORDERED: COREG PO SCH (10:00)
[2018-04-22] MEDS: HEPARIN SUB-Q SCH (11:23)
--- NOTE | 2018-04-22 12:01 | Progress Note ---
Assessment and Plan Assessment: Acute heart failure Paroxysmal atrial fibrillation/atrial flutter NSTEMI type II ? UTI / ? PNA / ? colitis / ? 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 Pt may benefit from group home systemic anticoagulation in regards to atrial fibrillation. However, severe anemia and thrombocytopenia are concerning. Will not initiate systemic AC at this time. Await GI consultation and recommendations. Defer diuresis to nephrology. The patient has been seen in conjunction with Dr. Roque who agrees with the assessment and plan of care. Subjective Date of service: 04/22/18 Principal diagnosis: AMS; NSTEMI type II; AFib Interval history: pt resting in bed, no apparent distress, remains confused. tele reviewed - in AFib with CVR on telemetry. Objective Last Vital Signs Temp 97.9 F 04/22/18 11:02 Pulse 93 H 04/22/18 11:19 Resp 20 04/22/18 11:02 BP 109/51 04/22/18 11:02 Pulse Ox 92 04/22/18 11:02 - Physical Examination HEENT: Positive: PERRL Neck: Positive: neck supple, trachea midline Cardiac: Positive: irregularly irregular, S1/S2 Lungs: Positive: clear to auscultation Neuro: Positive: Other (lethargic, confused) Abdomen: Negative: Tender Skin: Negative: Rash Musculoskeletal: Fluid Collection (generalized ) Extremities: Present: +2 Edema (BLE) - Labs and Meds Cardiac Enzymes 04/21/18 Range/Units 12:08 CK-MB (CK-2) 3.1 (0.0-4.0) ng/mL Comprehensive Metabolic Panel 04/21/18 04/22/18 Range/Units 14:55 06:07 Sodium 142 141 (137-145) mmol/L Potassium 3.4 L 3.4 L (3.6-5.0) mmol/L Chloride 105.4 103.7 (98-107) mmol/L Carbon Dioxide 17 L 16 L (22-30) mmol/L BUN 41 H 46 H (7-17) mg/dL Creatinine 1.9 H 2.4 H (0.7-1.2) mg/dL Glucose 235 H 232 H (65-100) mg/dL Calcium 7.2 L 7.1 L (8.4-10.2) mg/dL - Imaging and Cardiology EKG: report reviewed, image reviewed Echo: pending - Telemetry EKG Rhythm: Atrial Fibrillation - EKG Sinus rhythms and dysrhythmias: sinus tachycardia
--- NOTE | 2018-04-22 16:13 | Progress Note ---
Assessment and Plan Assessment and plan: Assessment and plan: --Metabolic encephalopathy; multifactorial, dementia Underlying sepsis, hypotension, pneumonia Continue supportive care, treat underlying disease process --Worsening shortness of breath; O2 titrate O2 sats to more than 90%, given neb --Right lower lobe pneumonia; present on admission IV Levaquin, cultures supportive care Possible aspiration pneumonia, speech and swallow eval --Acute kidney injury; probably secondary to ATN Gentle hydration, nephrology following --Severe hypokalemia; potassium improved to 3.4 Replace per protocol and monitor levels --Hypomagnesemia; replenishment protocol --Elevated D dimers, negative V/Q scan --Lower extremity, venous Doppler positive for chronic DVT --Acute colitis; IV Levaquin, renal dose Supportive care, consult GI as needed --Anemia; closely monitor H&H, transfuse as needed Stool for occult blood[hemoglobin in 01/13 was 11.4] --Dementia; supportive care --History of hypertension; patient is currently hypotensive --Sinus tachycardia/PVCs; patient is on Cardizem drip Closely monitor --Positive cardiac enzymes; probably nonspecific Multiple risk factors, cardiology evaluation --Severe malnutrition; hypoalbuminemia; supportive care nutrition consult --DVT prophylaxis; SCDs --Full CODE STATUS Patient is critically ill with multiple medical problems Prognosis guarded Clinical care time 35 minutes History Interval history: Patient seen and examined medical records reviewed Patient is noncommunicative sick looking Hypotensive Nurse reports coffee-ground emesis, GI already following Vital signs reviewed Hospitalist Physical - Constitutional Vitals: Temp Pulse Resp BP Pulse Ox 97.9 F 93 H 20 109/51 94 04/22/18 11:02 04/22/18 11:19 04/22/18 11:04/22/18 11:04/22/18 14:00 General appearance: Present: mild distress, well-nourished, other (confused, lethargic, no apparent distress) - EENT Eyes: Present: PERRL, EOM intact - Neck Neck: Present: supple - Respiratory Respiratory effort: normal Respiratory: right: rhonchi, bilateral: diminished - Cardiovascular Rhythm: regular Heart Sounds: Present: S1 & S2 - Extremities Extremity abnormal: edema (bilateral lower extremities and left upper extremity) - Abdominal General gastrointestinal: soft, non-tender, non-distended, normal bowel sounds - Integumentary Integumentary: Present: clear, warm - Psychiatric Psychiatric: other (noncommunicative unresponsive) - Neurologic Neurologic: other (noncommunicative) Results - Labs CBC & Chem 7: 04/21/18 00:05 04/22/18 06:07 Labs: Laboratory Last Values WBC 2.9 K/mm3 (4.5-11.0) L 04/21/18 00:05 RBC 2.51 M/mm3 (3.65-5.03) L 04/21/18 00:05 Hgb 7.6 gm/dl (10.1-14.3) L 04/21/18 00:05 Hct 22.7 % (30.3-42.9) L 04/21/18 00:05 MCV 91 fl (79-97) 04/21/18 00:05 MCH 30 pg (28-32) 04/21/18 00:05 MCHC 33 % (30-34) 04/21/18 00:05 RDW 17.8 % (13.2-15.2) H 04/21/18 00:05 Plt Count 47 K/mm3 (140-440) L 04/21/18 00:05 Add Manual Diff Complete 04/21/18 00:05 Total Counted 100 04/21/18 00:05 Seg Neuts % (Manual) 43.0 % (40.0-70.0) 04/21/18 00:05 Band Neutrophils % 30.0 % 04/21/18 00:05 Lymphocytes % (Manual) 1.0 % (13.4-35.0) L 04/21/18 00:05 Reactive Lymphs % (Man) 0 % 04/21/18 00:05 Monocytes % (Manual) 2.0 % (0.0-7.3) 04/21/18 00:05 Eosinophils % (Manual) 0 % (0.0-4.3) 04/21/18 00:05 Basophils % (Manual) 1.0 % (0.0-1.8) 04/21/18 00:05 Metamyelocytes % 17.0 % 04/21/18 00:05 Myelocytes % 4.0 % 04/21/18 00:05 Promyelocytes % 2.0 % 04/21/18 00:05 Blast Cells % 0 % 04/21/18 00:05 Nucleated RBC % 5.0 % (0.0-0.9) H 04/21/18 00:05 Seg Neutrophils # Man 1.2 K/mm3 (1.8-7.7) L 04/21/18 00:05 Band Neutrophils # 0.9 K/mm3 04/21/18 00:05 Lymphocytes # (Manual) 0.0 K/mm3 (1.2-5.4) L 04/21/18 00:05 Abs React Lymphs (Man) 0.0 K/mm3 04/21/18 00:05 Monocytes # (Manual) 0.1 K/mm3 (0.0-0.8) 04/21/18 00:05 Eosinophils # (Manual) 0.0 K/mm3 (0.0-0.4) 04/21/18 00:05 Basophils # (Manual) 0.0 K/mm3 (0.0-0.1) 04/21/18 00:05 Metamyelocytes # 0.5 K/mm3 04/21/18 00:05 Myelocytes # 0.1 K/mm3 04/21/18 00:05 Promyelocytes # 0.1 K/mm3 04/21/18 00:05 Blast Cells # 0.0 K/mm3 04/21/18 00:05 WBC Morphology Not Reportable 04/21/18 00:05 Hypersegmented Neuts Not Reportable 04/21/18 00:05 Hyposegmented Neuts Not Reportable 04/21/18 00:05 Hypogranular Neuts Not Reportable 04/21/18 00:05 Smudge Cells Not Reportable 04/21/18 00:05 Toxic Granulation Not Reportable 04/21/18 00:05 Toxic Vacuolation Not Reportable 04/21/18 00:05 Dohle Bodies Not Reportable 04/21/18 00:05 Pelger-Huet Anomaly Not Reportable 04/21/18 00:05 Issa Rods Not Reportable 04/21/18 00:05 Platelet Estimate Appears decreased 04/21/18 00:05 Clumped Platelets Not Reportable 04/21/18 00:05 Plt Clumps, EDTA Not Reportable 04/21/18 00:05 Large Platelets Not Reportable 04/21/18 00:05 Giant Platelets Not Reportable 04/21/18 00:05 Platelet Satelliting Not Reportable 04/21/18 00:05 Plt Morphology Comment Not Reportable 04/21/18 00:05 RBC Morphology Not Reportable 04/21/18 00:05 Dimorphic RBCs Not Reportable 04/21/18 00:05 Polychromasia Not Reportable 04/21/18 00:05 Hypochromasia Not Reportable 04/21/18 00:05 Poikilocytosis Not Reportable 04/21/18 00:05 Anisocytosis 1+ 04/21/18 00:05 Microcytosis 1+ 04/21/18 00:05 Macrocytosis Not Reportable 04/21/18 00:05 Spherocytes Not Reportable 04/21/18 00:05 Pappenheimer Bodies Not Reportable 04/21/18 00:05 Sickle Cells Not Reportable 04/21/18 00:05 Target Cells Not Reportable 04/21/18 00:05 Tear Drop Cells 1+ 04/21/18 00:05 Ovalocytes Not Reportable 04/21/18 00:05 Helmet Cells Not Reportable 04/21/18 00:05 [place] Bodies Not Reportable 04/21/18 00:05 [place] Rings Not Reportable 04/21/18 00:05 Marcelino Cells Not Reportable 04/21/18 00:05 Bite Cells Not Reportable 04/21/18 00:05 Crenated Cell Not Reportable 04/21/18 00:05 Elliptocytes Not Reportable 04/21/18 00:05 Acanthocytes (Spur) Not Reportable 04/21/18 00:05 Rouleaux Not Reportable 04/21/18 00:05 Hemoglobin C Crystals Not Reportable 04/21/18 00:05 Schistocytes Not Reportable 04/21/18 00:05 Malaria parasites Not Reportable 04/21/18 00:05 Sabino Bodies Not Reportable 04/21/18 00:05 Hem Pathologist Commnt No 04/21/18 00:05 PT 19.3 Sec. (12.2-14.9) H 04/21/18 00:05 INR 1.57 (0.87-1.13) H 04/21/18 00:05 APTT 36.4 Sec. (24.2-36.6) 04/21/18 00:05 D-Dimer 3469.10 ng/mlDDU (0-234) H 04/21/18 00:05 Sodium 141 mmol/L (137-145) 04/22/18 06:07 Potassium 3.4 mmol/L (3.6-5.0) L 04/22/18 06:07 Chloride 103.7 mmol/L (98-107) 04/22/18 06:07 Carbon Dioxide 16 mmol/L (22-30) L 04/22/18 06:07 Anion Gap 25 mmol/L 04/22/18 06:07 BUN 46 mg/dL (7-17) H 04/22/18 06:07 Creatinine 2.4 mg/dL (0.7-1.2) H 04/22/18 06:07 Estimated GFR 24 ml/min 04/22/18 06:07 BUN/Creatinine Ratio 19 % 04/22/18 06:07 Glucose 232 mg/dL (65-100) H 04/22/18 06:07 POC Glucose 222 (70-105) H 04/22/18 05:03 Lactic Acid 3.30 mmol/L (0.7-2.0) H* 04/22/18 09:49 Calcium 7.1 mg/dL (8.4-10.2) L 04/22/18 06:07 Magnesium 1.80 mg/dL (1.7-2.3) 04/22/18 06:07 Total Bilirubin 1.90 mg/dL (0.1-1.2) H 04/21/18 00:05 AST 29 units/L (5-40) 04/21/18 00:05 ALT 17 units/L (7-56) 04/21/18 00:05 Alkaline Phosphatase 73 units/L (35-129) 04/21/18 00:05 Total Creatine Kinase 327 units/L (30-135) H 04/21/18 12:08 CK-MB (CK-2) 3.1 ng/mL (0.0-4.0) 04/21/18 12:08 CK-MB (CK-2) Rel Index 0.9 (0-4) 04/21/18 12:08 Troponin T 0.158 ng/mL (0.00-0.029) H* 04/21/18 12:08 NT-Pro-B Natriuret Pep 9064 pg/mL (0-900) H 04/21/18 00:05 Total Protein 4.6 g/dL (6.3-8.2) L 04/21/18 00:05 Albumin 2.3 g/dL (3.9-5) L 04/21/18 00:05 Albumin/Globulin Ratio 1.0 % 04/21/18 00:05 Triglycerides 181 mg/dL (2-149) H 04/21/18 00:05 Cholesterol 93 mg/dL (50-199) 04/21/18 00:05 LDL Cholesterol Direct 28 mg/dL (50-130) L 04/21/18 00:05 HDL Cholesterol 35 mg/dL (40-59) L 04/21/18 00:05 Cholesterol/HDL Ratio 2.65 % 04/21/18 00:05 Lipase 7 units/L (13-60) L 04/21/18 00:05 Urine Color Basilia (Yellow) 04/21/18 13:20 Urine Turbidity Cloudy (Clear) 04/21/18 13:20 Urine pH 5.0 (5.0-7.0) 04/21/18 13:20 Ur Specific [place] 1.027 (1.003-1.030) 04/21/18 13:20 Urine Protein 100 mg/dl mg/dL (Negative) 04/21/18 13:20 Urine Glucose (UA) Neg mg/dL (Negative) 04/21/18 13:20 Urine Ketones Neg mg/dL (Negative) 04/21/18 13:20 Urine Blood Mod (Negative) 04/21/18 13:20 Urine Nitrite Neg (Negative) 04/21/18 13:20 Urine Bilirubin Neg (Negative) 04/21/18 13:20 Urine Urobilinogen 2.0 mg/dL (<2.0) 04/21/18 13:20 Ur Leukocyte Esterase Neg (Negative) 04/21/18 13:20 Urine WBC (Auto) 18.0 /HPF (0.0-6.0) H 04/21/18 13:20 Urine RBC (Auto) 4.0 /HPF (0.0-6.0) 04/21/18 13:20 Urine Bacteria (Auto) 4+ /HPF (Negative) 04/21/18 13:20 Urine Mucus Few /HPF 04/21/18 13:20
[2018-04-22] MEDS ORDERED: NACL 0.9% 1000 ML 0 ML ONE (16:43)
--- NOTE | 2018-04-22 17:48 | Gastroenterology Consultation ---
History of Present Illness - Reason for Consult Consult date: 04/22/18 colitis Requesting physician: TOMI TERRAZAS - History of Present Illness Patient is a 78 y/o female long-term resident with PMH of HTN, CAD, CHF, dementia, and multiple myeloma who presented to ED for an evaluation of AMS. She is currently being treated for metabolic encephalopathy, RLL penumonia ( possibel aspriation; [employer]CH[employer] eval pending), LANNY, acute heart failure, chronic DVT, paroxysmal A-fib, NSTEMI type II, and anemia. Cardiology and nephrology following. Upon admission, abd CT showed colitis to which GI has been consulted. This afternoon, patient was resting in bed w/o acute distress but noted to be confused and unable to provide history. History obtained via chart review and by speaking to her daughter (Toya Stewart- [phone]) over the phone. Daughter reports patient having chronic anemia requiring blood transfusions in the past. She is unsure if she has ever had an endoscopic evaluation with EGD or colonoscopy. Nursing reports 1 episode of coffee-ground emesis today. No hematemesis, melena, or hematochezia. No evidence of abd pain or diarrhea. Past History Past Medical History: CAD, diabetes, heart failure, hypertension, other ( multiple myeloma, dementia) Past Surgical History: appendectomy, hysterectomy, Other (coronary stent, pacemaker, Bladder surgery, jaw surgery) Social history: other (former smoker, long-term resident) Medications and Allergies Allergies Allergy/AdvReac Type Severity Reaction Status Date / Time Penicillins Allergy Rash Verified 08/18/14 12:13 Home Medications Medication Instructions Recorded Confirmed Last Taken Type Aspirin [Aspirin BABY CHEW TAB] 81 mg PO QDAY 08/18/14 04/21/18 Unknown History DULoxetine [Cymbalta] 60 mg PO DAILY 08/18/14 04/21/18 Unknown History Gabapentin [Neurontin] 300 mg PO BID 08/18/14 04/21/18 Unknown History Topiramate [Topamax TAB] 25 mg PO HS 08/18/14 04/21/18 Unknown History amLODIPine [Norvasc] 5 mg PO DAILY 08/18/14 04/21/18 Unknown History ALPRAZolam [Xanax TAB] 0.25 mg PO DAILY PRN 01/06/18 04/21/18 Unknown History Acidophilus Lactobacillus 1 cap PO BID 01/06/18 04/21/18 Unknown History Atorvastatin Calcium 80 mg PO HS 01/06/18 04/21/18 Unknown History Carvedilol [Coreg] 3.125 mg PO DAILY 01/06/18 04/21/18 Unknown History Dextran 70/Hypromellose 1 drop OU BID 01/06/18 04/21/18 Unknown History [Artificial Tears] Docusate Sodium [Colace CAP] 100 mg PO DAILY 01/06/18 04/21/18 Unknown History Norvasc 5 mg PO DAILY 01/06/18 04/21/18 Unknown History Sennosides [Senna] 2 tab PO BID 01/06/18 04/21/18 Unknown History Ventolin Hfa 2 puff INHALATION Q4H PRN 01/06/18 04/21/18 Unknown History Xanax 0.25 mg PO HS 01/06/18 04/21/18 Unknown History HYDROcodone/APAP 5-325 [Bennett 1 each PO Q4H PRN #10 tablet 01/18/18 04/21/18 Unknown Rx 5-325 mg TAB] Active Meds: Active Medications Acetaminophen (Tylenol) 650 mg PO Q4H PRN PRN Reason: Fever >101 Albuterol (Proventil) 2.5 mg IH Q4HRT PRN PRN Reason: Shortness Of Breath Alprazolam (Xanax) 0.25 mg PO DAILY PRN PRN Reason: Anxiety Aspirin (Baby Aspirin) 81 mg PO QDAY [facility] Atorvastatin Calcium (Lipitor) 80 mg PO QHS [facility] Last Admin: 04/21/18 22:40 Dose: 80 mg Docusate Sodium (Colace) 100 mg PO DAILY [facility] Duloxetine HCl (Cymbalta) 60 mg PO DAILY [facility] Heparin Sodium (Porcine) (Heparin) 5,000 unit SUB-Q Q12HR [facility] Last Admin: 04/22/18 11:23 Dose: 5,000 unit Levofloxacin/Dextrose (Levaquin 250mg/50ml) 250 mg in 50 mls @ 50 mls/hr IV Q24HR [facility]; Protocol Last Admin: 04/22/18 11:41 Dose: 50 mls/hr Potassium Chloride/Sodium Chloride (Ns 0.45/Kcl 20meq) 20 meq in 1,000 mls @ 125 mls/hr IV DIRECT [facility]HAIR[facility] Metoprolol Tartrate (Lopressor) 12.5 mg PO Q6HR [facility] Last Admin: 04/22/18 06:39 Dose: Not Given Morphine Sulfate (Morphine) 2 mg IV Q4H PRN PRN Reason: Pain, Moderate (4-6) Last Admin: 04/22/18 01:32 Dose: 2 mg Ondansetron HCl (Zofran) 4 mg IV Q8H PRN PRN Reason: Nausea And Vomiting Last Admin: 04/21/18 17:12 Dose: 4 mg Topiramate (Topamax) 25 mg PO HS [facility] Last Admin: 04/21/18 22:40 Dose: 25 mg Review of Systems - Review of Systems ROS unobtainable: due to mental status Exam - Constitutional Vital Signs: Temp Pulse Resp BP Pulse Ox 97.9 F 93 H 20 109/51 94 04/22/18 11:02 04/22/18 11:19 04/22/18 11:02 04/22/18 11:02 04/22/18 14:00 General appearance: no acute distress, other (confused) - Respiratory Respiratory: bilateral: diminished - Cardiovascular Rhythm: irregularly irregular Extremity abnormal: edema - Gastrointestinal General gastrointestinal: Present: soft, non-tender, non-distended, normal bowel sounds - Labs CBC & Chem 7: 04/21/18 00:05 04/22/18 06:07 Lab Results: Laboratory Results - last 24 hr 04/21/18 04/22/18 04/22/18 21:07 05:03 06:07 Sodium 141 Potassium 3.4 L Chloride 103.7 Carbon Dioxide 16 L Anion Gap 25 BUN 46 H Creatinine 2.4 H Estimated GFR 24 BUN/Creatinine Ratio 19 Glucose 232 H POC Glucose 264 H 222 H Lactic Acid Calcium 7.1 L Magnesium 1.80 04/22/18 09:49 Sodium Potassium Chloride Carbon Dioxide Anion Gap BUN Creatinine Estimated GFR BUN/Creatinine Ratio Glucose POC Glucose Lactic Acid 3.30 H* Calcium Magnesium Assessment and Plan 1.anemia 2.coffee ground emesis -plt 47, INR 1.57 -HGB 7.6 -continue to monitor H/H and transfuse as needed -currently on daily ASA and heparin -etiology- most likely 2/2 chronic disease, however with episode of CGE today and potential need for long term care pharmacist anticoagulation will schedule for an EGD in am for further evaluation -NPO after MN -hold am dose of heparin -start on PPI -continue supportive care -will follow 3.colitis -WBC 2.9 -afebrile -abd CT showed nonspecific colitis -etiology unclear -clinically, patient is w/o s/s of abd pain or diarrhea -recommend stool studies if diarrhea develops -continue empiric antibiotics -continue supportive care
[2018-04-22] MEDS ORDERED: PROTONIX IV SCH (18:00)
[2018-04-22] MEDS ORDERED: INTROPIN DRIP 800 MG/D5W 250 ML IV ONE (21:20)
[2018-04-22] MEDS ORDERED: SODIUM BICARBONATE IV ONE (21:20)
[2018-04-22] MEDS ORDERED: ATROPINE 0.1% (CARDIAC) ONE (21:20)
[2018-04-22] MEDS ORDERED: ADRENALIN ONE (21:20)
[2018-04-22] MEDS ORDERED: LEVOPHED DRIP 4 MG/NS 250 ML 4 MG/250 ML BAG IV ONE (22:00)
[2018-04-22] MEDS ORDERED: NACL 0.9% 1000 ML 1,000 ML ONE ×2 (22:00→22:17)
[2018-04-22] MEDS: LEVOPHED DRIP 4 MG/NS 250 ML 4 MG/250 ML BAG IV SCH (22:15)
--- NOTE | 2018-04-22 22:58 | XRay Report ---
FINAL REPORT EXAM: XR CHEST 1V AP HISTORY: intubation TECHNIQUE: 2 views of the chest. PRIORS: 04/20/2018 FINDINGS: There is an endotracheal tube in place which appears adequately positioned in the mid to distal trachea. The cardiomediastinal silhouette appears normal. There is a new right midlung can fluent opacity. There is a stable left basilar patchy infiltrate. The right lung base appears better aerated. The bones and soft tissues are unremarkable. IMPRESSION: 1. The endotracheal tube appears adequately positioned 2. There is a new right midlung can fluid opacity consistent with an infiltrate 3. There is a stable left lower lobe infiltrate
--- NOTE | 2018-04-22 23:11 | Cat Scan Report ---
FINAL REPORT PROCEDURE: CT HEAD/BRAIN WO CON TECHNIQUE: Computerized tomography of the head was performed without contrast material. HISTORY: ams COMPARISON: 04/21/2018 FINDINGS: Skull and scalp: Normal. Paranasal sinuses: There is opacification of the ethmoid and sphenoid sinuses.. Ventricles and subarachnoid spaces: Normal. Cerebrum: There is no evidence of acute intracranial hemorrhage, hematoma or infarction. Mild atrophy is noted.. Cerebellum and brainstem: No evidence of hemorrhage, acute infarction or mass. Vasculature: Normal. Comments: None. IMPRESSION: There is no evidence of an acute intracranial process. Mild atrophy. Mild sinusitis involving the ethmoid and sphenoid sinuses.
--- NOTE | 2018-04-23 00:23 | XRay Report ---
FINAL REPORT EXAM: XR CHEST 1V AP HISTORY: intubation TECHNIQUE: A portable supine view the chest was obtained and compared to the earlier study of 04/22/2018. FINDINGS: The tip of the ET tube is 2 cm above the ignacio. The heart size is normal. The lungs remain diffusely congested. There patchy airspace disease in the right juxtahilar area and left lung base with a right-sided effusion. The bones and soft tissues otherwise do not show any acute changes. IMPRESSION: Tip of the ET tube 2 cm above the ignacio. Stable pulmonary vascular congestion with bilateral airspace disease and right-sided effusion.
[2018-04-23] MEDS: HEPARIN SUB-Q SCH (00:25)
[2018-04-23] MEDS: INTROPIN DRIP 800 MG/D5W 250 ML 800 MG/250 ML BAG IV SCH ×2 (00:30)
[2018-04-23] MEDS ORDERED: NACL 0.9% 1000 ML 1,000 ML IV SCH (01:00)
[2018-04-23] MEDS ORDERED: INTROPIN DRIP 800 MG/D5W 250 ML 800 MG/250 ML BAG IV SCH (01:00)
[2018-04-23] MEDS ORDERED: VANCOMYCIN PHARMACY TO DOSE IV SCH (01:00)
[2018-04-23] MEDS ORDERED: SODIUM BICARBONATE IV ONE ×3 (01:15→10:08)
[2018-04-23] MEDS ORDERED: SODIUM BICARBONATE 150 MEQ in D5W 1,000 ML IV SCH (02:00)
[2018-04-23] MEDS ORDERED: VANCOMYCIN 1,500 MG in NACL 0.9% 500 ML 500 ML IV ONE (02:00)
[2018-04-23] MEDS: LOPRESSOR PO SCH (03:19)
[2018-04-23 05:44] LABS: Mean Corpuscular HGB Conc 30 % (30-34); Mean Corpuscular Hemoglobin 31 pg (28-32); Mean Corpuscular Volume 104 fl (79-97); Red Blood Count 1.65 M/mm3 (3.65-5.03); Red Cell Distribution Width 19.8 % (13.2-15.2)
[2018-04-23] MEDS: LEVOPHED DRIP 4 MG/NS 250 ML 4 MG/250 ML BAG IV SCH (05:52)
[2018-04-23 05:54] LABS: Platelet Count 30 K/mm3 (140-440)
[2018-04-23 05:56] LABS: Hematocrit 17.1 % (30.3-42.9); Hemoglobin 5.1 gm/dl (10.1-14.3)
[2018-04-23 06:19] LABS: Calcium 5.9 mg/dL (8.4-10.2)
[2018-04-23] MEDS ORDERED: NEO-SYNEPHRINE 100 MG in NACL 0.9% 90 ML IV SCH (07:30)
[2018-04-23 07:31] LABS: Basophils % (Manual) 0 % (0.0-1.8); Eosinophils % (Manual) 0 % (0.0-4.3); Total Cells Counted 100
[2018-04-23 07:32] LABS: Anisocytosis 1+; Macrocytosis Few; Platelet Estimate Appears Decreased
[2018-04-23 07:34] LABS: Burr Cells 1+; Ovalocytes Few; Tear Drop Cells Few
--- NOTE | 2018-04-23 07:51 | Discharge Summary ---
Providers - Providers Date of Admission: 04/21/18 04:33 Date of discharge: 04/23/18 Attending physician: TOMI TERRAZAS 04/21/18 03:14 Consult to Wound/ET Nurse [CONS] Routine Reason For Exam: wound eval 04/21/18 06:00 Consult to Physician [CONS] Routine Comment: Consulting Provider: DORA GUERRERO Physician Instructions: Reason For Exam: RENAL INSUFICIENCY 04/21/18 14:44 Consult to Physician [CONS] Routine Comment: Consulting Provider: DAMIAN DOUGLASS Physician Instructions: Reason For Exam: elevated troponin/SOB/ 04/21/18 15:11 Consult to Dietitian/Nutrition [CONS] Routine Physician Instructions: Reason For Exam: Reason for Consult: Malnutrition 04/22/18 11:45 Consult to Physician [CONS] Routine Comment: Consulting Provider: LUIS EDUARDO LEWIS Physician Instructions: Reason For Exam: acute collitis 04/22/18 16:14 Speech Therapy Evaluation and Treat [CONS] Routine Reason For Exam: aspiration pneumonia/swallow evaluation 04/23/18 00:45 Consult to Physician [CONS] Routine Comment: Consulting Provider: FORTUNATO MORALEZ Physician Instructions: Reason For Exam: cardiac arrest on [facility]. ventilation ,I.V dopamin Primary care physician: EVENTS ASSISTANT Hospitalization Condition: Serious Disposition: DC-30 STILL A PATIENT Exam - Constitutional Vitals: Temp Pulse Resp BP Pulse Ox 94.1 F L 55 L 20 69/36 93 04/23/18 04:00 04/23/18 06:50 04/23/18 06:50 04/23/18 06:50 04/23/18 04:00 Plan Follow up with: AIDEE RICHARD MD [Primary Care Provider] - 3-5 Days Forms: Accompanied Note
--- NOTE | 2018-04-23 07:54 | Event Note ---
Date: 04/23/18 Patient had cardiac arrest Code was called ,CPR was done per ACLS protocol Patient could not be revived.Pronounced Time of 7:40 am on 04/23/18 Family aware
--- NOTE | 2018-04-23 07:55 | Death Summary ---
Summary - Providers Date of service: 04/23/18 Consults: 04/21/18 03:14 Consult to Wound/ET Nurse [CONS] Routine Reason For Exam: wound eval 04/21/18 06:00 Consult to Physician [CONS] Routine Comment: Consulting Provider: DORA GUERRERO Physician Instructions: Reason For Exam: RENAL INSUFICIENCY 04/21/18 14:44 Consult to Physician [CONS] Routine Comment: Consulting Provider: DAMIAN DOUGLASS Physician Instructions: Reason For Exam: elevated troponin/SOB/ 04/21/18 15:11 Consult to Dietitian/Nutrition [CONS] Routine Physician Instructions: Reason For Exam: Reason for Consult: Malnutrition 04/22/18 11:45 Consult to Physician [CONS] Routine Comment: Consulting Provider: LUIS EDUARDO LEWIS Physician Instructions: Reason For Exam: acute collitis 04/22/18 16:14 Speech Therapy Evaluation and Treat [CONS] Routine Reason For Exam: aspiration pneumonia/swallow evaluation 04/23/18 00:45 Consult to Physician [CONS] Routine Comment: Consulting Provider: FORTUNATO MORALEZ Physician Instructions: Reason For Exam: cardiac arrest on [facility]. ventilation ,I.V dopamin Attending: TOMI TERRAZAS - summary Date of admission: 04/21/18 04:33 Date of : 04/23/18 (07:40 am) Reason for admission: Altered level of consciousness/metabolic increased adenopathy Disposition: on 04/23/18 at 7:20 am - Final diagnosis (1) Acute respiratory failure with hypoxia Note: Final diagnosis: (2) Cardiac arrest Note: Final diagnosis: (3) Septic shock Note: Final diagnosis: (4) Severe sepsis Note: Final diagnosis: (5) Lactic acidosis Note: Final diagnosis: (6) GI bleeding Note: Final diagnosis: (7) Severe anemia Note: Final diagnosis: (8) Acute kidney injury Note: Final diagnosis: (9) Metabolic acidosis Note: Final diagnosis: (10) Metabolic encephalopathy Note: Final diagnosis:
[2018-04-23 09:40] VITALS: BP 81/61
[2018-04-23] MEDS ORDERED: ADRENALIN ONE (10:08)
--- NOTE | 2018-04-23 14:35 | Vascular Lab Report ---
LEFT UPPER EXTREMITY VENOUS DUPLEX: REASON FOR EXAM: Pain and swelling of the left upper extremity COMMENTS ON THE LEFT: Partially occluding chronic thrombus is seen in the internal jugular vein.. The remaining veins visualized are freely compressible without evidence of internal echogenicity. Spontaneous and phasic flow is present in the subclavian vein proximally. COMMENTS ON THE RIGHT: A limited study of the jugular and subclavian veins shows no evidence of thrombus. 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 No evidence of acute deep venous thrombosis in the left upper extremity.
== END 2018-04-23 12:33 | DRG 871 ==
LOC: ED 20:47 → 4A 04-21 04:33 → CC1 04-22 21:36
PROVIDERS: ADMIT Internal Medicine; ATTEND Internal Medicine
PROC: 06HY33Z Insertion of Infusion Device into Lower Vein, Percutaneous Approach (ICD-10-PCS; 2018-04-21)
PROC: 5A1935Z Respiratory Ventilation, Less than 24 Consecutive Hours (ICD-10-PCS; principal; 2018-04-22)
PROC: 0BH17EZ Insertion of Endotracheal Airway into Trachea, Via Natural or Artificial Opening (ICD-10-PCS; 2018-04-22)
PROC: 4A033R1 Measurement of Arterial Saturation, Peripheral, Percutaneous Approach (ICD-10-PCS; 2018-04-22)
PROC: 5A12012 Performance of Cardiac Output, Single, Manual (ICD-10-PCS; 2018-04-23)
DX: A41.9 Sepsis, unspecified organism (principal); R65.21 Severe sepsis with septic shock; E43 Unspecified severe protein-calorie malnutrition; J96.01 Acute respiratory failure with hypoxia; G93.41 Metabolic encephalopathy; J18.1 Lobar pneumonia, unspecified organism; I21.A1 Myocardial infarction type 2; N17.0 Acute kidney failure with tubular necrosis; K92.2 Gastrointestinal hemorrhage, unspecified; I48.92 Unspecified atrial flutter; D61.818 Other pancytopenia; I82.C22 Chronic embolism and thrombosis of left internal jugular vein; I13.0 Hypertensive heart and chronic kidney disease with heart failure and stage 1 through stage 4 chronic kidney disease, or unspecified chronic kidney disease; N39.0 Urinary tract infection, site not specified; E87.6 Hypokalemia; K52.9 Noninfective gastroenteritis and colitis, unspecified; I46.9 Cardiac arrest, cause unspecified; D64.9 Anemia, unspecified; F03.90 Unspecified dementia, unspecified severity, without behavioral disturbance, psychotic disturbance, mood disturbance, and anxiety; E83.42 Hypomagnesemia; I49.3 Ventricular premature depolarization; E88.09 Other disorders of plasma-protein metabolism, not elsewhere classified; I48.0 Paroxysmal atrial fibrillation; I50.9 Heart failure, unspecified; L89.159 Pressure ulcer of sacral region, unspecified stage; E11.22 Type 2 diabetes mellitus with diabetic chronic kidney disease; N18.9 Chronic kidney disease, unspecified; E87.8 Other disorders of electrolyte and fluid balance, not elsewhere classified; I25.10 Atherosclerotic heart disease of native coronary artery without angina pectoris; I25.2 Old myocardial infarction; Z68.29 Body mass index [BMI] 29.0-29.9, adult; Z85.79 Personal history of other malignant neoplasms of lymphoid, hematopoietic and related tissues; Z90.49 Acquired absence of other specified parts of digestive tract; Z95.5 Presence of coronary angioplasty implant and graft; Z90.710 Acquired absence of both cervix and uterus; Z95.0 Presence of cardiac pacemaker; Z87.891 Personal history of nicotine dependence; Z88.0 Allergy status to penicillin; Z79.82 Long term (current) use of aspirin; Z79.899 Other long term (current) drug therapy
CPT/HCPCS: 31500; 36415; 36600; 70450; 71045; 74176; 78582; 80048; 80053; 80061; 81001; 82140; 82550; 82553; 82803; 82962; 83690; 83735; 83880; 84484; 85007; 85025; 85379; 85610; 85730; 87040; 87070; 87205; 92950; 93005; 93010; 93306; 93970; 94002; 94760; 96365; 96375; 96376; A9270-GY; A9540; A9558; J0171; J0461; J1265; J1644; J1956; J2270; J2370; J2405; J3370; J3475; J7030; J7040; J7070